=== PATIENT | female | born 2000 | race Caucasian/White ===

== ENCOUNTER → 2021-10-03 11:12 | Outpatient (BNVA) | payer OTHER, SELFPAY | PROVIDERS: PCP Nurse Practitioner Adult Health; Visit Provider Physician Assistant Medical | DX: S96.902A Unspecified injury of unspecified muscle and tendon at ankle and foot level, left foot, initial encounter (principal); W00.0XXA Fall on same level due to ice and snow, initial encounter; M79.10 Myalgia, unspecified site | CPT/HCPCS: 73630; 99203 ==

== ENCOUNTER → 2021-10-06 14:10 | Outpatient (BNVA) | payer OTHER, SELFPAY | PROVIDERS: Visit Provider Physician Assistant | DX: S92.352A Displaced fracture of fifth metatarsal bone, left foot, initial encounter for closed fracture (principal) | CPT/HCPCS: 99212 ==

== ENCOUNTER → 2021-10-10 09:23 | Outpatient (BNVA) | payer OTHER, SELFPAY | PROVIDERS: Visit Provider Physician Assistant Medical | DX: S92.355A Nondisplaced fracture of fifth metatarsal bone, left foot, initial encounter for closed fracture (principal); W00.0XXA Fall on same level due to ice and snow, initial encounter | CPT/HCPCS: 99213 ==

== ENCOUNTER 2021-11-04 07:10 | Outpatient (REF) | payer OTHER, SELFPAY ==
--- NOTE | ~2021-11-04 | XR_ITS ---
EXAMINATION: XR FOOT, LEFT CLINICAL INFORMATION: Pain. COMPARISON: Radiograph of the left foot dated from 10/03/2021. TECHNIQUE: AP, lateral, and oblique views of the left foot. FINDINGS: No acute fractures or malalignment. Previously described fracture at the base of the fifth metatarsal bone is felt to be artifactual. Joint alignment is anatomic. Hallux valgus. Os trigonum. There is diffuse soft tissue swelling. Nonspecific to radiopaque foreign bodies. XR/XR foot LT min 3V IMPRESSION: No acute fractures or malalignment. Hallux valgus and os trigonum which could be related with repetitive pain. Nonspecific soft tissue swelling.
== END 2021-11-04 07:11 | disposition home or self-care (01) ==
LOC: HO.HOSX 07:10
PROVIDERS: Visit Provider Physician Assistant
DX: S92.352D Displaced fracture of fifth metatarsal bone, left foot, subsequent encounter for fracture with routine healing (principal)
CPT/HCPCS: 73630; 99212

== ENCOUNTER 2023-07-24 11:13 | Outpatient (REF) | payer OTHER, SELFPAY | END 2023-07-24 11:14 | disposition home or self-care (01) | LOC: HO.HOSX 11:13 | PROVIDERS: Visit Provider Physician Assistant | DX: Z13.89 Encounter for screening for other disorder (principal) ==